=== PATIENT | male | born 2000 | race Caucasian/White ===

== ENCOUNTER 2019-02-14 15:41 | Emergency (ER) | payer OTHER, SELFPAY ==
[2019-02-14 15:42] VITALS: BP 114/82; PULSE 77; RESP 17; TEMP 36.6; O2SAT 99; BMI 27.7
--- NOTE | 2019-02-14 15:59 | RAD_ITS ---
STUDY: X-RAY CHEST REASON FOR EXAM: Male, 18 years old. Chest pain TECHNIQUE: Single AP portable view of the chest. COMPARISON: None. FINDINGS: The lungs are clear and expanded. There is no demonstrated pleural abnormality. Normal size heart. Normal mediastinum and zully. Normal visualized pulmonary arteries. Normal visualized aortic arch and descending thoracic aorta. Normal visualized thoracic spine. Normal visualized ribs, clavicles, and shoulders. There is no demonstrated abnormality of the visualized soft tissue structures of the upper abdomen. RAD/Chest 1 View (Portable) IMPRESSION: Normal x-ray examination of the chest. Electronically Signed: Micky Hodgson DO at 16:35 EDT Tel , Service support ,
--- NOTE | 2019-02-14 15:59 | EKG12_ITS ---
Test Reason : CP Blood Pressure : / mmHG Vent. Rate : 057 BPM Atrial Rate : 057 BPM P-R Int : 128 ms QRS Dur : 096 ms QT Int : 382 ms P-R-T Axes : 044 066 018 degrees QTc Int : 371 ms Sinus bradycardia with sinus arrhythmia Otherwise normal ECG Confirmed by LANA CAMERON, UNIQUE ([id number]), index editor HAL OLSEN ([id number]) on 02/18/2019 9:31:18 AM Referred By: Confirmed By:UNIQUE SCHWARTZ MD
--- NOTE | 2019-02-14 16:01 | ED.VISSUMM ---
- ER Visit Summary Date of Service: 02/14/19 Chief Complaint: Chest pain History of Present Illness: The patient is a 18 M presenting with chest pain. He states he has left-sided chest pain that started 2 days ago. He states it waxes and wanes but never completely goes away. He has tried no medications at home. He has had this pain intermittently for the past several months. He states he was seen at [facility] and was not happy with their care. He denies PE/DVT risk factors. Denies CAD risk factors. Physical Examination: Vitals are stable. Patient is afebrile. Alert no acute distress. HEENT exam is unremarkable. Neck is supple. Lungs are clear and equal bilaterally. Left chest tender to palpation with no crepitus. Heart is regular rate and rhythm. Abdomen is soft nontender nondistended. Extremities are unremarkable. Skin is warm and dry. No focal neurologic deficit. Remainder of exam is unremarkable. Emergency Department Course and Treatment: Patient was given aspirin, Toradol. EKG is sinus bradycardia 57 with no acute ischemic changes. CBC, chemistries unremarkable. D-dimer negative. Troponin is negative. Chest x-ray shows no acute process. On reevaluation, patient feels much improved. He is given prescription for Naprosyn. Advised to follow-up with Dr. Santana consumer services consultant for no doctor. Advised return to ED for worsening complaints. Disposition: Discharge home Impression: Chest wall pain This note was generated with [employer] dictation software. It may contain incorrect words, spelling, and punctuation that were not noted in review of the chart prior to signing ED Disposition - Plan for ED Patient: Instructions: CHEST WALL PAIN, Costochondritis Prescriptions: Naproxen [Naprosyn] 500 mg PO BID PRN #20 tab Prescription Printed Referrals: Olman Santana MD [STAFF PHYSICIAN] -
[2019-02-14] MEDS: Ketorolac 15 MG/ML Vial IV (16:19)
[2019-02-14] MEDS: Aspirin 81 MG TAB.CHEW 324 MG PO (16:19)
[2019-02-14 16:20] LABS: Absolute Lymphocyte Count 1.91 X10^3/uL (0.83-4.51); Absolute Neutrophil Count 4.4 X10^3/uL (2.0-7.7); Basophil# 0.03 X10^3/uL; Basophil% 0.4 % (0-1); Eosinophil# 0.09 X10^3/uL; Eosinophils% 1.3 % (0-5); Hematocrit 43.9 % (40-54); Hemoglobin 14.4 g/dL (13.0-16.5); Lymphocyte # 1.91 X10^3/ul (4.0); Lymphocyte % 27.6 % (19-41); Mean Corp Hgb Conc 32.8 g/dL (32-36); Mean Corpuscular Hgb 29.4 pg (27.0-32.0); Mean Corpuscular Volume 89.6 fL (80-94); Mean Platelet Vol. 9.5 fl (6.2-12.0); Monocyte# 0.47 X10^3/uL; Monocyte% 6.8 % (0-10); NRBC Flagged by Analyzer 0 % (0-5); Neutrophil # 4.41 X10^3/uL (2.7-7.7); Neutrophil % 63.6 % (47-70); Platelet Count 302 K/mm3 (150-450); RBC Distribution Width CV 12.9 % (11.6-14.6); RBC Distribution Width SD 42.2 fl (35.1-43.9); White Blood Count 6.9 K/mm3 (4.4-11.0)
--- NOTE | 2019-02-14 16:23 | NURSING ---
NO OLD EKGS
[2019-02-14 16:33] LABS: D-Dimer Quantitative (DVT/PE) < 0.27 FEU/ug/m (0.27-0.49)
[2019-02-14 16:51] LABS: Anion Gap 7 (5-15); BUN 6 mg/dL (7-18); BUN/Creat Ratio 6.9 RATIO (10-20); Calcium,Total 9.1 mg/dL (8.5-10.1); Chloride 105 mmol/L (98-107); Creatinine, Serum 0.87 mg/dL (0.70-1.30); EST Glomerular Filtration Rate 119 mL/min (>60); Est Glom Filt Rate - Afr Amer 144 mL/min (>60); Estimated Creatinine Clearance 154.34 ml/min; Glucose 74 mg/dL (74-106); Sodium Level 139 mmol/L (136-145)
--- NOTE | 2019-02-14 17:33 | ED.DEP ---
ED Disposition - Plan for ED Patient: Instructions: CHEST WALL PAIN, Costochondritis Prescriptions: Naproxen [Naprosyn] 500 mg PO BID PRN #20 tablet Referrals: Olman Santana MD [STAFF PHYSICIAN] -
[2019-02-14 17:38] VITALS: BP 120/82; PULSE 67; RESP 23; O2SAT 99
== END 2019-02-14 17:46 | disposition home or self-care (01) ==
LOC: ED 16:18
PROVIDERS: Emergency Provider Emergency Medicine
DX: R07.89 Other chest pain (principal); R00.1 Bradycardia, unspecified
CPT/HCPCS: 71045; 80048; 84484; 85025; 85379; 93005; 96374; 99285; A4216

== ENCOUNTER 2020-08-26 06:26 | Emergency (ER) | payer OTHER, SELFPAY ==
[2020-08-26 06:27] VITALS: BP 133/78; PULSE 82; RESP 16; TEMP 36.6; O2SAT 98; BMI 37.4
--- NOTE | 2020-08-26 06:54 | EDS_ITS ---
HPI History of Present Illness Chief Complaint: Cold Sx Informant: patient Onset/Context/Timing Onset: Days Context: Gradual Onset Timing: Waxes and wanes Current Severity: Mild Maximum Severity: Mild Narrative Narrative: Patient presents with cold symptoms for the past week. He states he typically gets his symptoms with the change of weather. He believes is all allergies. He has tried allergy medication in the past but states it does not really help. He is currently taking a multisymptom [id number] allergy m edicine that he states helps for about 3 hours and then stops being beneficial. Patient denies fever or chills. No significant cough. He does not feel short of breath. [facility] Medical History Fracture Home Medications cetirizine-pseudoephedrine [Zyrtec-D] 1 tab PO Q12H #30 tab 08/26/20 [Rx Last Taken Unknown] Allergy/AdvReac Type Severity Reaction Status Date / Time venom-honey bee AdvReac Swelling Verified 02/14/19 15:42 [bee venom (honey bee)] Social History Smoking Status: Never smoker ROS ROS ED Constitutional Constitutional ED: Denies chills or fever(s) Eyes Eyes: Denies change in vision ENT ENT ED: Reports other Details: Congestion ; Denies sore throat Cardiovascular Cardiovascular: Denies chest pain Respiratory/Chest Respiratory/Chest: Denies cough or dyspnea Gastrointestinal Gastrointestinal: Denies abdominal pain, diarrhea, nausea or vomiting Genitourinary Genitourinary ED: Denies dysuria Musculoskeletal Musculoskeletal: Denies back pain Integumentary Denies rash Neurologic Neurologic: Denies headache(s) or weakness Psychiatric Psychiatric: Denies anxiety or depression Endocrine Endocrinology: Denies polydipsia or polyuria Allergic/Immunologic Allergic/Immunologic ED: Denies urticaria EXAM Physical Exam Const Vital Signs: 08/26/20 06:27 08/26/20 06:29 Temperature 98 F Temperature Source Oral Pulse Rate 82 Respiratory Rate 16 Respiratory Effort Normal Respiratory Depth Normal Respiratory Pattern Normal Blood Pressure 133/78 H Blood Pressure Mean 96 Pulse Ox 98 Oxygen Delivery Method Room Air Positive well nourished and well developed General Appearance ED: well developed HEENT Reports normocephalic, head/scalp atraumatic, TM's clear, moist mucous membranes and other Mild posterior pharyngeal drainage. Uvula midline. Tympanic Membrane ED: Yes TM's clear Eyes PERRL and EOMs intact bilaterally Neck supple Chest Wall inspection of chest normal and palpation of chest normal Resp normal respiratory effort and clear to auscultation bilaterally Cardio regular rate and regular rhythm GI normal to inspection, nondistended, normoactive bowel sounds Palpation: soft Back/Spine no CVA tenderness Extremity normal to inspection Neuro oriented x3 and no sensory deficits noted Sensorium / Orientation: alert Motor Exam: strength 5/5 throughout Psych mental status grossly normal Skin no rashes or lesions noted MDM MDM MDM Narrative Medical decision making narrative: Patient be given a prescription for Zyrtec. He is given the phone number for the allergy and asthma treatment center in [place] for further allergy testing if desired. Discharge Plan Triage Chief Complaint: Cold Sx ED Provider: Minda Parmar Dx/Rx/DC Orders Clinical Impression: URI (upper respiratory infection) Instructions: ED URI, Viral, No Abx (Adult) Prescriptions: New cetirizine-pseudoephedrine [Zyrtec-D] 5-120 mg tablet extended release 12 hr 1 tab PO Q12H Qty: 30 RF: 0 Primary Care Provider: Merritt Alonzo Referrals: Merritt Alonzo MD [Primary Care Provider] - Philipp Salmon MD [COURTESY STAFF PHYSICIAN] - Disposition Disposition: Home, self care
[2020-08-26 07:21] VITALS: PULSE 84; RESP 16; O2SAT 98
--- NOTE | 2020-08-26 07:21 | ED.RN ---
THIS NURSE REVIEWED D/C INSTRUCTIONS WITH PT. PT VERBALIZED UNDERSTANDING OF INSTRUCTIONS. PT DENIES FURTHER NEEDS OR QUESTIONS AT THIS TIME.
== END 2020-08-26 07:22 | disposition home or self-care (01) ==
PROVIDERS: Emergency Provider Emergency Medicine; PCP Family Medicine
DX: J06.9 Acute upper respiratory infection, unspecified (principal)
CPT/HCPCS: 99282